=== PATIENT | male | born 1950 | race Caucasian/White ===

== ENCOUNTER 2023-03-18 08:46 | Emergency (ER) | payer OTHER ==
[~2023-03-18] VITALS: Ht 182.9 cm; Wt 83.9 kg
[2023-03-18 09:06] VITALS: BP_SYST 131; PULSE 67; RESP 20; TEMP 98.3; O2SAT 98
[2023-03-18] MEDS ORDERED: KETOROLAC TROMETHAMINE 60 MG/2 ML VIAL IM ONE (10:30)
[2023-03-18 10:54] LABS: BASOPHILS % (AUTO) 0.6 % (0.0-2.0); EOSINOPHILS % (AUTO) 0.6 % (0.0-4.0); HEMATOCRIT 46.5 % (36-54); HEMOGLOBIN 15.4 g/dL (14.0-18.0); LYMPHOCYTES # (AUTO) 1.5 K/uL (1.0-5.5); LYMPHOCYTES % (AUTO) 23.1 % (20.5-51.5); MEAN CORPUSCULAR HEMOGLOBIN 30 pg (27-31); MEAN CORPUSCULAR HGB CONC 33 % (32-36); MEAN CORPUSCULAR VOLUME 89 fL (79.0-98.0); MONOCYTES # (AUTO) 0.9 K/uL (0.0-1.0); MONOCYTES % (AUTO) 13.1 % (1.7-9.3); NEUTROPHILS # (AUTO) 4.2 K/uL (1.8-7.7); NEUTROPHILS % (AUTO) 62.6 % (40.0-70.0); PLATELET COUNT (AUTO) 179 K/uL (130-430); RED BLOOD CELL COUNT(AUTO) 5.23 MIL/uL (4.2-6.2); RED CELL DISTRIBUTION WIDTH 13.5 % (9.0-15.0); WHITE BLOOD COUNT (AUTO) 6.7 K/uL (4.8-10.8)
[2023-03-18 10:58] LABS: ANION GAP 8 (5-15); CALCIUM 9.2 mg/dL (8.4-11.0); CARBON DIOXIDE 30 mmol/L (23-29); CHLORIDE 103 mmol/L (98-107); CREATININE 1.03 mg/dL (0.55-1.30); GLUCOSE 100 mg/dL (74-106); POTASSIUM 4.8 mmol/L (3.5-5.1); SODIUM SERUM 141 mmol/L (136-145); UREA NITROGEN, BLOOD 16 mg/dL (8-21)
[2023-03-18 11:06] LABS: ERYTHROCYTE SEDIMENTATION RATE 7 MM/HR (0-15)
[2023-03-18 11:31] LABS: ALANINE AMINOTRANSFERASE 26 U/L (12-78); ALBUMIN 3.4 g/dL (3.4-4.8); ASPARTATE AMINOTRANSFERASE 17 U/L (10-37); BILIRUBIN,DIRECT 0.3 mg/dL (0.0-0.3); TOTAL BILIRUBIN 1.1 mg/dL (0.0-1.0); TOTAL PROTEIN, SERUM 6.8 g/dL (6.4-8.3); URIC ACID 3.9 mg/dL (2.4-7.0)
[2023-03-18] MEDS ORDERED: TRAM50TA2 PO (11:50)
[2023-03-18] MEDS ORDERED: IBUP-1971 PO (11:50)
== END 2023-03-18 12:13 | disposition home or self-care (01) ==
LOC: SED 08:46
DX: M25.462 Effusion, left knee (principal)
CPT/HCPCS: 99284; 80076; 80048; 84550; 85025; 85651; 36415; 73564; 96372; 82397; J1885

== ENCOUNTER 2023-10-20 10:32 | Emergency (ER) | payer OTHER ==
[~2023-10-20] VITALS: Ht 182.9 cm; Wt 83.9 kg
[~2023-10-20 10:32] MED LIST: IBUP-1971 PO; TRAM50TA2 PO
[2023-10-20 10:37] VITALS: BP_SYST 149; PULSE 65; RESP 18; TEMP 98.3; O2SAT 98
[2023-10-20] MEDS: BACITRACIN 1 GM OINT TP ONE (11:03)
[2023-10-20] MEDS: DIPHTH,PERTUSS(ACELL),TET VAC 0.5 ML VIAL (Tdap) I.M. ONE (11:03)
[2023-10-20 11:20] VITALS: BP_SYST 149; PULSE 65; RESP 18; TEMP 98.3; O2SAT 98
== END 2023-10-20 11:21 | disposition home or self-care (01) ==
LOC: SED 10:32
DX: S61.411A Laceration without foreign body of right hand, initial encounter (principal); Z23 Encounter for immunization; Z79.899 Other long term (current) drug therapy; W01.0XXA Fall on same level from slipping, tripping and stumbling without subsequent striking against object, initial encounter; Y93.89 Activity, other specified; Y92.89 Other specified places as the place of occurrence of the external cause; Y99.8 Other external cause status
CPT/HCPCS: 90715; 99283